=== PATIENT | male | born 1965 | race Caucasian/White ===

== ENCOUNTER 2017-08-04 15:07 | Emergency (ER) | payer BC, OTHER ==
[2017-08-04 15:16] VITALS: TEMP 98.1; BMI 27.1
--- NOTE | 2017-08-04 15:16 | PDOC ---
Rapid Medical Evaluation Time Seen by Provider: 08/04/17 15:09 Medical Evaluation: 08/04/17 15:10 I have performed a brief in-person evaluation of this patient. The patient presents with a chief complaint of: Hand tremors, weakness, diaphoresis and nausea x 2 days. H/o ETOH abuse and continues to drink, last etoh use was 5 days ago. H/o asthma, HTN, HLD. smoker Pertinent physical exam findings:Tachy to 112, otherwise stable I have ordered the following:cbc/chem/ua/etoh level The patient will proceed to the ED for further evaluation.
--- NOTE | 2017-08-04 15:43 | PDOC ---
History of Present Illness - General Chief Complaint: Lightheaded Stated Complaint: ? alcohol withdrwal LIGHTHEADED Time Seen by Provider: 08/04/17 15:09 History Source: Patient Exam Limitations: No Limitations - History of Present Illness Initial Comments: 52 yo M presents with tremors, lightheadedness. He states that he drank too much over the weekend. Drinks intermittently, but this was heavier than usual. Now he has tremors to the hands, dry mouth, lightheadedness, weakness all over. No fever, chills, cp, SOB, abd pain, N/V, numbness, headache. He has never required detox from alcohol in the past, but has detoxed from cocaine in the past. Past History - Past Medical History Allergies/Adverse Reactions: Allergies Allergy/AdvReac Type Severity Reaction Status Date / Time cat dander Allergy Verified 08/04/17 15:11 dog dander Allergy Verified 08/04/17 15:11 fruits Allergy Uncoded 08/04/17 15:11 Home Medications: Ambulatory Orders Albuterol Sulfate Inhaler - [Ventolin Hfa Inhaler -] 1 - 2 inh PO PRN PRN Atorvastatin Ca [Lipitor] 20 mg PO ASDIR 08/04/17 Fluoxetine HCl [Prozac -] 80 mg PO DAILY 08/04/17 Lisinopril [Zestril] 20 mg PO ASDIR 08/04/17 Tiotropium [place] [Spiriva] 1 inh PO DAILY 08/04/17 Asthma: Yes COPD: No HTN: Yes Hypercholesterolemia: Yes - Surgical History Appendectomy: Yes - Suicide/Smoking/Psychosocial Hx Smoking Status: Yes Smoking History: Current every day smoker Have you smoked in the past 12 months: Yes Number of Cigarettes Smoked Daily: 10 Information on smoking cessation initiated: Yes 'Breaking Loose' booklet given: 08/04/17 Hx Alcohol Use: No Drug/Substance Use Hx: No Substance Use Type: None Review of Systems - Review of Systems Able to Perform ROS?: Yes Comments:: GENERAL/CONSTITUTIONAL: No fever or chills. +Diffuse weakness. HEAD, EYES, EARS, NOSE AND THROAT: No change in vision. No ear pain or discharge. No sore throat. CARDIOVASCULAR: No chest pain or shortness of breath. RESPIRATORY: No cough, wheezing, or hemoptysis. GASTROINTESTINAL: No nausea, vomiting, diarrhea or constipation. GENITOURINARY: No dysuria, frequency, or change in urination. MUSCULOSKELETAL: No joint or muscle swelling or pain. No neck or back pain. SKIN: No rash NEUROLOGIC: No headache, vertigo, loss of consciousness, or change in strength/ sensation. ENDOCRINE: +Increased thirst. No abnormal weight change. HEMATOLOGIC/LYMPHATIC: No anemia, easy bleeding, or history of blood clots. ALLERGIC/IMMUNOLOGIC: No hives or skin allergy. *Physical Exam - Vital Signs Last Vital Signs Temp Pulse Resp BP Pulse Ox 98.1 F 114 H 18 133/99 100 08/04/17 15:11 08/04/17 15:11 08/04/17 15:11 08/04/17 15:11 08/04/17 15:11 - Physical Exam Comments: GENERAL: Awake, alert, and fully oriented, in no acute distress HEAD: No signs of trauma EYES: PERRLA, EOMI, sclera anicteric, conjunctiva clear ENT: Auricles normal inspection, hearing grossly normal, nares patent, oropharynx clear without exudates. Moist mucosa. +Tongue fasciculations. NECK: Normal ROM, supple, no lymphadenopathy, JVD, or masses LUNGS: Breath sounds equal, clear to auscultation bilaterally. No wheezes, and no crackles HEART: Tachycardic, normal S1 and S2, no murmurs, rubs or gallops ABDOMEN: Soft, nontender, normoactive bowel sounds. No guarding, no rebound. No masses EXTREMITIES: Normal range of motion, no edema. No clubbing or cyanosis. No cords, erythema, or tenderness. +Tremors to the hands B/L NEUROLOGICAL: Cranial nerves II through XII grossly intact. Normal speech, normal gait SKIN: Warm, Dry, normal turgor, no rashes or lesions noted. ED Treatment Course - LABORATORY CBC & Chemistry Diagram: 08/04/17 15:46 08/04/17 15:46 *DC/Admit/Observation/Transfer Diagnosis at time of Disposition: Alcohol withdrawal Qualifiers: Complication of substance-induced condition: uncomplicated Qualified Code(s): F10.230 - Alcohol dependence with withdrawal, uncomplicated - Discharge Dispostion Disposition: HOME Condition at time of disposition: Stable Admit: No - Referrals - Patient Instructions Printed Discharge Instructions: DI for Alcohol Abuse - Post Discharge Activity
[2017-08-04] MEDS ORDERED: chlordiazePOXIDE HCL 25 MG CAPSULE PO ONE (15:44)
[2017-08-04] MEDS ORDERED: SODIUM CHLORIDE 1,000 ML IV STA (15:44)
[2017-08-04 15:58] LABS: BASOPHIL 0.8 % (0-2.0); EOSINOPHIL 3.9 % (0-4.5); MCH 29.2 pg (25.7-33.7); MCHC 33.8 g/dl (32.0-35.9); MEAN CELL VOLUME 86.3 fl (80-96); MEAN PLT VOLUME 7.5 fl (7.5-11.1); PLATELET COUNT 268 K/MM3 (134-434); RDW 13.9 % (11.9-15.9); WHITE BLOOD COUNT 8.3 K/mm3 (4.0-10.0)
[2017-08-04] MEDS ORDERED: chlordiazePOXIDE HCL 25 MG CAPSULE ONE (16:11)
[2017-08-04] MEDS ORDERED: LORazepam 0.5 MG TABLET ONE (16:11)
[2017-08-04 16:17] LABS: URINE APPEARANCE CLEAR; URINE BILIRUBIN NEGATIVE (NEGATIVE); URINE BLOOD NEGATIVE (NEGATIVE); URINE COLOR LTYELLOW; URINE GLUCOSE (UA) NEGATIVE (NEGATIVE); URINE KETONE NEGATIVE (NEGATIVE); URINE NITRITE NEGATIVE (NEGATIVE); URINE PROTEIN NEGATIVE (NEGATIVE); URINE UROBILINOGEN NEGATIVE mg/dL (0.2-1.0)
[2017-08-04 16:29] LABS: ALBUMIN 3.9 g/dl (3.4-5.0); ALK PHOS 75 U/L (45-117); ANION GAP 8 (8-16); BILIRUBIN,TOTAL 0.6 mg/dL (0.2-1.0); CALCIUM 8.9 mg/dL (8.5-10.1); CO2 24 mmol/L (21-32); GLUCOSE,RANDOM 88 mg/dL (74-106); SGOT/AST 24 U/L (15-37); SGPT/ALT 52 U/L (12-78); TOT PROT 7.6 g/dl (6.4-8.2)
[2017-08-04 17:01] LABS: URINE MARIJUANA THC NEGATIVE ng/ml (CUTOFF=50)
[2017-08-04 18:05] VITALS: BP 151/82; PULSE 102
[2017-08-04 18:48] LABS: URINE LEUK ESTERASE TRACE (NEGATIVE)
[2017-08-04 21:54] LABS: URINE BACTERIA FEW /hpf (NEGATIVE); URINE WBC 0-2 (0-2)
--- NOTE | 2017-08-06 11:39 | EKG ---
Test Reason : Blood Pressure : / mmHG Vent. Rate : 096 BPM Atrial Rate : 096 BPM P-R Int : 132 ms QRS Dur : 086 ms QT Int : 360 ms P-R-T Axes : 037 098 046 degrees QTc Int : 454 ms NORMAL SINUS RHYTHM RIGHTWARD AXIS BORDERLINE ECG NO PREVIOUS ECGS AVAILABLE Confirmed by BOUBACAR MAZA, NORRIS ([id number]) on 08/06/2017 11:39:39 AM Referred By: Confirmed By:NORRIS HAMLIN MD
== END 2017-08-04 18:04 | disposition home or self-care (01) ==
LOC: JER 15:07
PROC: 3E033NZ Introduction of Analgesics, Hypnotics, Sedatives into Peripheral Vein, Percutaneous Approach (ICD-10-PCS; principal; 2017-08-04)
DX: F10.230 Alcohol dependence with withdrawal, uncomplicated (principal); J45.909 Unspecified asthma, uncomplicated; I10 Essential (primary) hypertension; F17.210 Nicotine dependence, cigarettes, uncomplicated
CPT/HCPCS: 36415; 80053; 80307; 81003; 81015; 85025; 93005; 93010; 99282-25

== ENCOUNTER 2025-02-27 06:01 | Day surgery (SDC) | payer BC ==
[2025-02-21 13:42] VITALS: BMI 29.1
[2025-02-27 07:03] VITALS: RESP 16
[2025-02-27] MEDS ORDERED: BUPIVACAINE HCL/PF 0.25% (2.5MG/ML) 10 ML VIAL ONE (07:25)
[2025-02-27] MEDS ORDERED: BUPIVACAINE HCL/EPINEPHRINE/PF 30 ML VIAL IJ ONE (07:25)
[2025-02-27] MEDS ORDERED: MIDAZOLAM HCL 2 MG/2 ML SINGLE DOSE VIAL ONE (09:13)
[2025-02-27] MEDS ORDERED: PROPOFOL 20 ML ONE (09:17)
[2025-02-27] MEDS ORDERED: SUCCINYLCHOLINE CHLORIDE 200 MG/10 ML SYRINGE ONE ×2 (09:19→09:20)
[2025-02-27] MEDS ORDERED: LACTATED RINGERS SOLUTION 1,000 ML IV SCH (10:30)
[2025-02-27] MEDS ORDERED: oxyCODONE HCL 5 MG TABLET PO PRN (10:37)
[2025-02-27] MEDS: ACETAMINOPHEN 1000 MG/100 ML BAG IVPB ONE (10:40)
[2025-02-27 12:06] VITALS: TEMP 97.7
[2025-02-27 12:47] VITALS: BP 144/84; PULSE 84
== END 2025-02-27 12:35 | disposition home or self-care (01) ==
LOC: FASU 06:01
PROVIDERS: ATTEND Orthopaedic Surgery
PROC: 0SBD4ZZ Excision of Left Knee Joint, Percutaneous Endoscopic Approach (ICD-10-PCS; principal; 2025-02-27 09:42)
DX: M23.222 Derangement of posterior horn of medial meniscus due to old tear or injury, left knee (principal); M65.88 Other synovitis and tenosynovitis, other site; M22.42 Chondromalacia patellae, left knee; J44.9 Chronic obstructive pulmonary disease, unspecified; R73.03 Prediabetes; I10 Essential (primary) hypertension; X58.XXXA Exposure to other specified factors, initial encounter; Y93.9 Activity, unspecified; Y92.9 Unspecified place or not applicable; Y99.9 Unspecified external cause status
CPT/HCPCS: 94760